=== PATIENT | female | born 1970 | race Caucasian/White ===

== ENCOUNTER 2020-10-24 17:02 | Emergency (ER) | payer MEDICARE ==
[~2020-10-24 17:02] MED LIST: AMITRIPTYLINE H75 MG PO; ASPIRIN325 M1 PO; BENTYL10 MG PO; CIPRO500 MG PO; COLACE100 MG PO; COZAAR100 MG PO; FLONASE ALLER15.8 ML; HYDROCODONE PO; HYDROXYZINE PAM25 MG PO; LIPITOR40 MG PO; METRONIDAZOLE500 MG PO; NORCO 5-325 TA1 EACH PO; PEPCID AC20 MG PO; PERCOCET 5-3251 EACH PO; PHENERG PO; SINGULAIR10 MG PO; TOPAMAX100 MG PO; VENTOLIN (2.5 MG/3 M INH; VISTARIL25 MG PO; WELLBUTRIN XL150 MG PO
[2020-10-24 21:13] LABS: BASOPHIL 0.8 % (0-2); EOSINOPHIL 9.4 % (0-5); HCT 44.6 % (37.0-47.0); HGB 13.5 g/dl (12.5-16.0); LYMPHOCYTE 23.9 % (15-48); MCH 28.1 pg (25.0-31.0); MCHC 30.3 g/dL (32.0-36.0); MCV 92.7 fL (78.0-100.0); MONOCYTE 6.4 % (0-12); NEUTROPHIL 59.3 % (41-80); NRBC 0; PLT 321 K/uL (150-400); RBC 4.81 M/uL (4.20-5.40); WBC 9.2 K/uL (4.0-10.5)
[2020-10-24 21:30] LABS: ALBUMIN 3.4 g/dL (3.4-5.0); BILIRUBIN - TOTAL 0.2 mg/dL (0.2-1.0); BUN/CREAT RATIO (CALC) 13.2 RATIO; CREATININE 0.76 mg/dL (0.51-0.95); GLOBULIN (CALCULATION) 4.9 g/dL; POTASSIUM 3.2 mmol/L (3.5-5.1); TOTAL PROTEIN 8.3 g/dL (6.4-8.2)
== END 2020-10-25 05:00 | disposition home or self-care (01) ==
LOC: FER 17:02
PROVIDERS: Emergency Medicine
DX: R09.1 Pleurisy (principal); I10 Essential (primary) hypertension; J44.9 Chronic obstructive pulmonary disease, unspecified; Z79.899 Other long term (current) drug therapy
CPT/HCPCS: 36415; 71045; 71275; 80053; 84484; 85025; 93005; J1885; Q9967

== ENCOUNTER 2021-07-05 19:24 | Inpatient (IN) | payer MEDICARE ==
[~2021-07-05] VITALS: Ht 167.6 cm; Wt 128.9 kg
[2021-07-05 21:00] LABS: BASOPHIL 0 % (0-2); EOSINOPHIL 0 % (0-5); HCT 38.5 % (37.0-47.0); HGB 11.6 g/dl (12.5-16.0); LYMPHOCYTE 25.1 % (15-48); MCH 27.3 pg (25.0-31.0); MCHC 30.1 g/dL (32.0-36.0); MCV 90.6 fL (78.0-100.0); MPV 10.1 fL (6.0-9.5); NEUTROPHIL 69.7 % (41-80); NRBC 0; PLT 168 K/uL (150-400); RBC 4.25 M/uL (4.20-5.40); RDW 15.4 % (11.5-14.0); WBC 4.8 K/uL (4.0-10.5)
[2021-07-05 21:17] LABS: BILIRUBIN - TOTAL 0.2 mg/dL (0.2-1.0); BUN/CREAT RATIO (CALC) 13.4 RATIO; CREATININE 0.82 mg/dL (0.51-0.95); GLOBULIN (CALCULATION) 4.4 g/dL; POTASSIUM 3.1 mmol/L (3.5-5.1); TOTAL PROTEIN 7.4 g/dL (6.4-8.2)
[2021-07-05 22:36] LABS: CORONAVIRUS 2019 SARS-COV-2 POSITIVE (NEGATIVE); INFLUENZA A NAA NEGATIVE (NEGATIVE)
[2021-07-05] MEDS ORDERED: ZINC30 MG PO (23:19)
[2021-07-05] MEDS ORDERED: VITAMIN D210 MCG PO (23:20)
[2021-07-05] MEDS ORDERED: PROMETHAZINE/C120 ML PO (23:25)
[2021-07-05] MEDS ORDERED: MELATONIN 5 MG1 EACH PO (23:25)
[2021-07-05] MEDS ORDERED: ALLEGRA ALLERG180 MG PO (23:25)
[2021-07-05] MEDS ORDERED: B12 ACTIVE1000 MCG PO (23:26)
[2021-07-05] MEDS ORDERED: OMEPRAZOLE40 MG PO (23:27)
[2021-07-06 06:37] LABS: BASOPHIL 0 % (0-2); EOSINOPHIL 0 % (0-5); HCT 37.9 % (37.0-47.0); HGB 11.5 g/dl (12.5-16.0); MCH 27.3 pg (25.0-31.0); MCHC 30.3 g/dL (32.0-36.0); MONOCYTE 3.6 % (0-12); MPV 10.2 fL (6.0-9.5); NRBC 0; PLT 149 K/uL (150-400); RBC 4.21 M/uL (4.20-5.40); RDW 15.4 % (11.5-14.0)
[2021-07-06 06:40] LABS: WBC 2.8 K/uL (4.0-10.5)
[2021-07-06 07:39] LABS: ALBUMIN 2.6 g/dL (3.4-5.0); BILIRUBIN - TOTAL 0.1 mg/dL (0.2-1.0); C-REACTIVE PROTEIN 6.4 mg/dL (<=0.90); CREATININE 0.75 mg/dL (0.51-0.95); MAGNESIUM 1.8 mg/dL (1.8-2.4); PHOSPHORUS 2.9 mg/dL (2.6-4.7); POTASSIUM 4.1 mmol/L (3.5-5.1); TOTAL PROTEIN 6.6 g/dL (6.4-8.2)
[2021-07-07 06:19] LABS: BASOPHIL 0.1 % (0-2); EOSINOPHIL 0 % (0-5); HCT 36.3 % (37.0-47.0); LYMPHOCYTE 18.8 % (15-48); MCH 27.3 pg (25.0-31.0); MCHC 30.3 g/dL (32.0-36.0); MCV 90.1 fL (78.0-100.0); MONOCYTE 3.4 % (0-12); MPV 10.2 fL (6.0-9.5); NEUTROPHIL 77.3 % (41-80); NRBC 0; PLT 173 K/uL (150-400); RBC 4.03 M/uL (4.20-5.40); RDW 15.4 % (11.5-14.0)
[2021-07-07 06:20] LABS: WBC 8.1 K/uL (4.0-10.5)
[2021-07-07 06:35] LABS: ALBUMIN 2.4 g/dL (3.4-5.0); BILIRUBIN - TOTAL 0.1 mg/dL (0.2-1.0); BUN/CREAT RATIO (CALC) 15.9 RATIO; CREATININE 0.69 mg/dL (0.51-0.95); GLOBULIN (CALCULATION) 4.2 g/dL; POTASSIUM 3.5 mmol/L (3.5-5.1); TOTAL PROTEIN 6.6 g/dL (6.4-8.2)
--- NOTE | 2021-07-07 12:42 | NUR ---
07/07/21 Ms. Mccoy lives at home with her parent. - Will monitor for 02 needs at discharge.
[2021-07-08 04:39] LABS: BASOPHIL 0 % (0-2); EOSINOPHIL 0 % (0-5); HCT 36.1 % (37.0-47.0); HGB 10.7 g/dl (12.5-16.0); LYMPHOCYTE 9.4 % (15-48); MCH 26.8 pg (25.0-31.0); MCHC 29.6 g/dL (32.0-36.0); MCV 90.3 fL (78.0-100.0); MONOCYTE 4.1 % (0-12); MPV 10.4 fL (6.0-9.5); NRBC 0; PLT 183 K/uL (150-400); RDW 15.5 % (11.5-14.0); WBC 6.6 K/uL (4.0-10.5)
[2021-07-08 05:18] LABS: IRON % SATURATION 4.6 %SAT (20-50)
[2021-07-08 05:55] LABS: ALBUMIN 2.5 g/dL (3.4-5.0); BILIRUBIN - TOTAL 0.2 mg/dL (0.2-1.0); BUN/CREAT RATIO (CALC) 17.5 RATIO; CREATININE 0.63 mg/dL (0.51-0.95); GLOBULIN (CALCULATION) 4.5 g/dL; POTASSIUM 3.7 mmol/L (3.5-5.1)
[2021-07-09 05:18] LABS: BASOPHIL 0.3 % (0-2); EOSINOPHIL 0 % (0-5); HCT 37.3 % (37.0-47.0); HGB 11.1 g/dl (12.5-16.0); LYMPHOCYTE 19.9 % (15-48); MCH 26.7 pg (25.0-31.0); MCHC 29.8 g/dL (32.0-36.0); MCV 89.9 fL (78.0-100.0); MONOCYTE 8.1 % (0-12); MPV 10.5 fL (6.0-9.5); NEUTROPHIL 70.3 % (41-80); NRBC 0; PLT 212 K/uL (150-400); RBC 4.15 M/uL (4.20-5.40); RDW 15.3 % (11.5-14.0)
[2021-07-09 05:48] LABS: ALBUMIN 2.4 g/dL (3.4-5.0); BILIRUBIN - TOTAL 0.2 mg/dL (0.2-1.0); BUN/CREAT RATIO (CALC) 20.6 RATIO; CREATININE 0.68 mg/dL (0.51-0.95); GLOBULIN (CALCULATION) 4.5 g/dL; POTASSIUM 3.8 mmol/L (3.5-5.1); TOTAL PROTEIN 6.9 g/dL (6.4-8.2)
[2021-07-10 06:10] LABS: BASOPHIL 0.2 % (0-2); EOSINOPHIL 0 % (0-5); HCT 36.3 % (37.0-47.0); LYMPHOCYTE 16.1 % (15-48); MCHC 30.3 g/dL (32.0-36.0); MCV 89.2 fL (78.0-100.0); MPV 10.3 fL (6.0-9.5); NEUTROPHIL 75.2 % (41-80); NRBC 0; PLT 266 K/uL (150-400); RBC 4.07 M/uL (4.20-5.40); RDW 15.2 % (11.5-14.0); WBC 4.4 K/uL (4.0-10.5)
[2021-07-10 06:43] LABS: ALBUMIN 2.5 g/dL (3.4-5.0); BILIRUBIN - TOTAL 0.2 mg/dL (0.2-1.0); BUN/CREAT RATIO (CALC) 23.6 RATIO; CREATININE 0.72 mg/dL (0.51-0.95); GLOBULIN (CALCULATION) 4.3 g/dL; POTASSIUM 3.7 mmol/L (3.5-5.1); TOTAL PROTEIN 6.8 g/dL (6.4-8.2)
[2021-07-11 06:38] LABS: BASOPHIL 0.2 % (0-2); EOSINOPHIL 0 % (0-5); HGB 11.3 g/dl (12.5-16.0); LYMPHOCYTE 11.9 % (15-48); MCH 27.3 pg (25.0-31.0); MCHC 30.5 g/dL (32.0-36.0); MCV 89.4 fL (78.0-100.0); MONOCYTE 5.5 % (0-12); MPV 10.2 fL (6.0-9.5); NEUTROPHIL 80.1 % (41-80); NRBC 0; PLT 317 K/uL (150-400); RBC 4.14 M/uL (4.20-5.40); RDW 15.3 % (11.5-14.0); WBC 6.6 K/uL (4.0-10.5)
[2021-07-11 07:07] LABS: ALBUMIN 2.6 g/dL (3.4-5.0); BILIRUBIN - TOTAL 0.2 mg/dL (0.2-1.0); BUN/CREAT RATIO (CALC) 24.6 RATIO; CREATININE 0.69 mg/dL (0.51-0.95); GLOBULIN (CALCULATION) 4.2 g/dL; TOTAL PROTEIN 6.8 g/dL (6.4-8.2)
--- NOTE | 2021-07-11 10:50 | NUR ---
07/11/21 Ms. Mccoy lives at home. Her mother also resides in the home. She was independent in the home and community prior to admission. She is supported by [facility] and able to meet her financial obligations. - 02 will be arranged through [facility] per patient choice if needed at discharge.
--- NOTE | 2021-07-11 13:40 | NUR ---
07/11/21 Ms. Mccoy lives at home. Her mother also resides in the home. Patient was independent in the home and community prior to admission. A referral was made to [place] for 02 at 3 L in anticipation for discharge on 07/12.
[2021-07-12] MEDS ORDERED: DULERA 200 MCG8.8 GM INH (09:37)
[2021-07-12] MEDS ORDERED: DEXAMETHASONE2 MG PO (09:37)
[2021-07-12] MEDS ORDERED: PROVENTIL HFA6.7 GM INH (09:37)
== END 2021-07-12 11:47 | disposition home or self-care (01) | DRG 871 ==
LOC: FER 19:24 → FMS 21:47
PROVIDERS: Family Medicine; Internal Medicine; Nurse Practitioner; ADMIT Internal Medicine
PROC: XW033E5 Introduction of Remdesivir Anti-infective into Peripheral Vein, Percutaneous Approach, New Technology Group 5 (ICD-10-PCS; principal; 2021-07-05)
PROC: 8E0ZXY6 Isolation (ICD-10-PCS; 2021-07-05)
PROC: XW0DXM6 Introduction of Baricitinib into Mouth and Pharynx, External Approach, New Technology Group 6 (ICD-10-PCS; 2021-07-08)
DX: A41.89 Other specified sepsis (principal); U07.1 COVID-19; J96.01 Acute respiratory failure with hypoxia; J12.82 Pneumonia due to coronavirus disease 2019; J44.0 Chronic obstructive pulmonary disease with (acute) lower respiratory infection; D61.818 Other pancytopenia; R65.20 Severe sepsis without septic shock; E87.6 Hypokalemia; E11.65 Type 2 diabetes mellitus with hyperglycemia; D50.9 Iron deficiency anemia, unspecified; E11.22 Type 2 diabetes mellitus with diabetic chronic kidney disease; N18.2 Chronic kidney disease, stage 2 (mild); I12.9 Hypertensive chronic kidney disease with stage 1 through stage 4 chronic kidney disease, or unspecified chronic kidney disease; G80.9 Cerebral palsy, unspecified; G47.30 Sleep apnea, unspecified; G43.909 Migraine, unspecified, not intractable, without status migrainosus; F32.A Depression, unspecified; Z88.8 Allergy status to other drugs, medicaments and biological substances; Z79.899 Other long term (current) drug therapy; Z86.73 Personal history of transient ischemic attack (TIA), and cerebral infarction without residual deficits; Z90.49 Acquired absence of other specified parts of digestive tract; Z98.890 Other specified postprocedural states
CPT/HCPCS: 36415; 36600; 71045; 80053; 82607; 82728; 82803; 83036; 83540; 83550; 83605; 83615; 83735; 84100; 84145; 84484; 85025; 86140; 93005; 94010; 94640; 94760; 94762; C9399; J1100; J1650; J2405; J2916; J7030; J7050; J8540; U0002